=== PATIENT | female | born 1975 | race Caucasian/White ===

== ENCOUNTER 2019-10-17 18:37 | Emergency (ER) | payer BC ==
--- NOTE | 2019-10-17 19:11 | EDM.PDOC ---
ED HPI GENERAL MEDICAL PROBLEM - General Chief Complaint: ENT Problem Stated Complaint: LEFT EAR PAIN Time Seen by Provider: 10/17/19 19:05 Source of Information: Reports: Patient History Limitations: Reports: No Limitations - History of Present Illness INITIAL COMMENTS - FREE TEXT/NARRATIVE: Gayatri is a 44 year old female, presents to the ED today with c/o left ear pain, started after patient reemerged from the water after she was swimming, ibuprofen has helped minimally, her mom tried pouring some hydrogen peroxide in the ear which made patient dizzy. Patient denies feeling dizzy presently. Patient is not on antibiotics currently. Patient denies any other complaints. Onset: Today, Sudden left ear Pain Score (Numeric/FACES): 8 - Related Data Allergies Allergy/AdvReac Type Severity Reaction Status Date / Time No Known Allergies Allergy Verified 10/17/19 18:58 Home Meds: Home Meds NK [No Known Home Meds] 10/17/19 [History] ED ROS ENT - Review of Systems Review Of Systems: Comprehensive ROS is negative, except as noted in HPI. ED EXAM, ENT - Physical Exam Exam: See Below Exam Limited By: No Limitations General Appearance: Alert, WD/WN, No Apparent Distress Eye Exam: Bilateral Eye: EOMI Ears: Normal External Exam, Normal Canal, Hearing Grossly Normal, Other (Left TM is injected and bulging with suppurative drainage, no perforation. Right TM with clear fluid, mildly injected, no bulging, no perforation) Nose: Normal Inspection Mouth/Throat: Normal Inspection Head: Atraumatic, Normocephalic Neck: Normal Inspection, Supple, Non-Tender. No: Lymphadenopathy (R), Lymphadenopathy (L) Respiratory/Chest: No Respiratory Distress Cardiovascular: Normal Peripheral Pulses Extremities: Normal Inspection Neurological: Alert, Oriented, CN II-XII Intact Psychiatric: Normal Affect Skin: Warm, Dry, Intact Lymphatic: No Adenopathy Course - Vital Signs Text/Narrative:: Left acute otitis media. Start Amoxicillin, take as directed. Clear fluid behind Right TM, recommend Zyrtec/Claritin for two weeks. Ibuprofen/Tylenol per bottle instructions. Reasons to return discussed, patient agreeable and discharged in stable condition. Departure - Departure Time of Disposition: 19:30 Disposition: Home, Self-Care 01 Condition: Good Clinical Impression: Otitis media Qualifiers: Otitis media type: suppurative Chronicity: acute Laterality: left Recurrence: non-recurrent Spontaneous tympanic membrane rupture: without spontaneous rupture Qualified Code(s): H66.002 - Acute suppurative otitis media without spontaneous rupture of ear drum, left ear - Discharge Information Instructions: Otitis Media, Adult, [id number] Referrals: PCP,None [Primary Care Provider] - Forms: ED Department Discharge Additional Instructions: Start Amoxicillin tonight, take as directed. Ibuprofen 600 mg every 6 hours for pain as needed. Tylenol 650 mg every 4 hours as needed. Claritin or Zyrtec daily for 14 days. Warm pack to ear may be soothing as well.
== END 2019-10-17 19:25 | disposition home or self-care (01) ==
LOC: JP.ED 18:37
DX: H66.002 Acute suppurative otitis media without spontaneous rupture of ear drum, left ear (principal)
CPT/HCPCS: 99282